=== PATIENT | male | born 1940 | race Caucasian/White ===

== ENCOUNTER 2016-09-26 16:02 | Inpatient (IN) | payer MEDICARE ==
[~2016-09-26] VITALS: Ht 175.3 cm; Wt 85.3 kg
[~2016-09-26 16:02] MED LIST: ASPI-628 PO; CYCL1DRO OP; SIMV20TA4 PO; SOTA80TA PO
[2016-09-26 17:47] VITALS: PULSE 60
[2016-09-26 17:55] VITALS: BP 166/90; PULSE 58; RESP 18; O2SAT 100
--- NOTE | 2016-09-26 18:22 | NUR ---
Transfer from [facility] Pt. arrived to room 2010 PCC from [facility] at ~1745. Pt. arrived on a heparin drip that was started at 1518 at [facility] with a bolus of 5000UNITS heparin at 1515. Heparin drip is currently running at 20mL/hr (11.8UNITS/kg/hr) with a body weight of 84.50kg. Pt. appeared in no apparent distress with no c/o of chest pain or SOB. Family is in the room with Pt. Will continue to monitor.
--- NOTE | 2016-09-26 18:28 | PCM.HPMED ---
Subjective Date of Service Sep 26, 2016 Primary Provider: Admitting Physician: Narendra Lopez MD Primary Care Physician: Sunil Ignacio MD Attending Physician: Narendra Lopez MD Chief Complaint: Left lower extremity DVT History of Present Illness: 76-year-old male with past medical history of CAD status post stent placement 2008, hyperlipidemia, hypertension, paroxysmal A. fib, pacemaker, PE, prostate cancer, DVT with IVC filter in place left lower extremity direct transfer from [facility] scheduled [facility] secondary to extensive left lower extremity DVT which requires ECOS procedure. Patient was seen at [facility] on 09/25/2016 secondary to a near syncopal episode. He received a pacemaker interrogation and adjustment for bradycardia. While he was in the ER yesterday he developed bilateral hip pain though had no acute motor or sensory problems at the time. He was discharged home. He he returned back to [facility] today secondary to weakness and pain specifically low back pain and bilateral hip pain. He states his also had weakness in his lower extremities and pain in his left lower extremity specifically. This pain is increased with any attempt to ambulate or exercise his muscles. 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 He denies any other complaints. In the ED at [facility] patient received: -L-spine x-ray which showed multiple lumbar spine disc degeneration. -Pelvic x-ray showed lower lumbar spine disc degeneration. -Left leg venous Doppler which showed that the deep veins are not normally compressible containing intramural thrombus at the greater saphenous vein, the common femoral vein, profunda femoris vein, superficial femoral vein and popliteal vein. Color and pulse Doppler demonstrated loss of normal phasic intramural venous flow. There is no normal augmentation of response to distal compression maneuver -Chest CT showed small but definite pulmonary embolus in the right lower lobe posterior medially. During ED visit at [facility] patient remained in normal sinus rhythm with normal blood pressures. No hypoxia reported. He did have chronic back pain. Dr. Marissa schaefer has agreed to do [facility] procedure, patient transferred to [facility] via ambulance. Heparin drip per her recall initiated A comprehensive review of systems was conducted with the patient and was negative except that reported in the HPI Allergies Coded Allergies: No Known Allergies (Verified , 02/23/14) Home Medications Per [facility] admission information Aspirin 81 mg by mouth daily Sotalol (Sorine) 80 mg by mouth Sotalol (Betapace AF) 40 mg by mouth a.m. before meals NyQuil Zyquil Restasis Glucosamine Cholecalciferol Levofloxacin Metronidazole Ondansetron PMH CAD stent in 2008 Hypertension Hyperlipidemia Paroxysmal A. fib Pulmonary embolism Prostate cancer IVC filter Surgical History Cardiac stent Prostatectomy Knee surgery Gail filter Cataracts Datanyze in [place] [id number] pacer Family History Noncontributory Social History Occupation: [employer] Hx Alcohol Use: No Hx Substance Use: No Hx Tobacco Use: Yes Living Arrangement: with Family Exam Vital Signs Vital Sign - Last Date Time Temp Pulse Resp B/P Pulse Ox O2 Delivery O2 Flow Rate FiO2 09/26/16 17:55 36.3 58 18 166/90 100 Room Air Exam General: No acute distress, well-developed, well-nourished, appropriately interactive. Sitting up in hospital bed. HEENT: Normocephalic, atraumatic. External ears without defect. Pupils equal, round, and reactive to light and accommodation. Neck: Supple with full range of motion. No jugular venous distension. No bruits. Cardiovascular: Regular rate and rhythm with no murmurs, rubs, or gallops appreciated Pulmonary: Clear to auscultation bilaterally with no crackles, wheezes, or rhonchi. Normal respiratory effort with no use of accessory muscles good air movement Abdomen: Bowel tones present. Soft, nontender, nondistended. Extremities: Bilateral hip tenderness. Left lower extremity medial thigh and popliteal space tender and warm to palpation. Firm vasculature can be appreciated in the area. Skin: Normal temperature, turgor, and texture Neurological: Cranial nerves grossly intact. Psychiatric: Normal mood and affect. Alert and oriented to person, place, and time. Assessment & Plan 76-year-old male with past medical history of CAD status post stent placement 2008, hyperlipidemia, hypertension, paroxysmal A. fib, pacemaker, PE, prostate cancer, DVT with IVC filter in place left lower extremity direct transfer from [facility] scheduled [facility] secondary to extensive left lower extremity DVT which requires ECOS procedure. 1. Left lower extremity DVT. Present on admission. Acute on chronic. Ongoing - Gail filter in place 10 years - Left lower extremity venous Doppler at [facility] confirms - IV heparin per protocol - Cardiology following - ECOS procedure scheduled for the morning - Nothing by mouth after midnight 2. Right lower lobe pulmonary embolus. Acute. Present on admission. Ongoing - CT scan at [facility] confirms - Heparin as above - Oxygenating well on room air - No intervention scheduled at this time - Continue to monitor 3. Paroxysmal A. fib. Chronic. Present on admission. Ongoing - Patient not on home anticoagulation - Telemetry - Continue home sotalol - Continue to monitor 4. Tobacco dependence. Chronic. Present on admission. Ongoing - Offer patient nicotine patch 5. Hypertension. Chronic. Present on admission. Ongoing - Continue home sotalol 6. Hyperlipidemia. Chronic. Present admission. Ongoing - No home med - Lipid panel Patient Status: Patient was admitted under inpatient status with expected length of stay greater than two midnights due to severity of presenting symptoms , risk of adverse event, and complexity of treatment plan. Pain Evaluation: Adequate Pain Control GI Prophylaxis: H2 irma VTE Prophylaxis: Other (on heparin drip) Resuscitation Status: CPR: Attempt Resuscitation Attending Statement The patient was seen and examined together with Dr. Nixon on 09/26/2016 and I agree with the history, exam and plan as outlined in the note above. . copies to: Sunil Ignacio MD, GILES A DO Sep 26, 2016 18:28 Narendra Lopez MD Sep 28, 2016 08:06
[2016-09-26] MEDS ORDERED: Polyethylene Glycol (PEG) 17 Gm Powder PO PRN (18:55)
[2016-09-26] MEDS ORDERED: Alum-Mag Hydrox-Simeth 30 mL Suspension PO PRN (18:55)
[2016-09-26] MEDS ORDERED: Heparin 25K Unit/500mL 0.45 NS 25,000 UNIT in IV Premix 1 EACH IV SCH ×2 (19:25→19:30)
[2016-09-26 19:46] LABS: BASOPHILS % (AUTO) 0.3 % (0-3); EOSINOPHILS % (AUTO) 0.8 % (0-5); MONOCYTES % (AUTO) 11.6 % (4-12); Mean Corpuscular Hemoglobin 28.5 pg (27.0-35.0); Mean Corpuscular Volume 85.5 fL (81-100); Platelet Count 177 bil/L (150-400)
[2016-09-26 20:45] VITALS: BP 119/76; PULSE 66; RESP 19; O2SAT 96
[2016-09-26 20:46] LABS: INR 1.06 ratio
[2016-09-26] MEDS: HYDROcodone-APAP 5-325 mg Tablet PO PRN (20:49)
[2016-09-26 23:06] LABS: APPEARANCE,URINE CLEAR (CLEAR,HAZY); COLOR,URINE YELLOW (YELLOW)
[2016-09-26 23:07] LABS: OCCULT BLOOD,URINE NEGATIVE (NEGATIVE); PH,URINE 5.5 (5.0-8.0); UROBILINOGEN,URINE NORMAL (NORMAL)
[2016-09-26 23:21] VITALS: BP 132/80; PULSE 54; RESP 18; O2SAT 95
[2016-09-27] VITALS (23 sets, daily range): BP systolic 104–149; BP diastolic 59–84; PULSE 50–98; RESP 13–20; O2SAT 93–99
[2016-09-27 01:42] LABS: BASOPHILS % (AUTO) 0.3 % (0-3); MONOCYTES % (AUTO) 13.2 % (4-12); Mean Corpuscular Volume 84.3 fL (81-100); NEUTROPHILS % (AUTO) 52.9 % (40-74); Platelet Count 162 bil/L (150-400)
[2016-09-27 01:58] LABS: INR 1.04 ratio
[2016-09-27 02:06] LABS: Magnesium 2.2 mg/dL (1.6-2.6)
[2016-09-27] MEDS: Heparin 5,000 Unit/mL Inj IVPUSH PRN ×2 (02:33→08:32)
[2016-09-27] MEDS: HYDROcodone-APAP 5-325 mg Tablet PO PRN ×2 (02:51→18:30)
--- NOTE | 2016-09-27 05:23 | NUR ---
HEPARIN GTT / PAIN Heparin gtt infusing @ 14u/kg. Next PTT @ 0730. No s/sx of bleeding. NPO since midnight for procedure in AM. Patient c/o 11/09 hip pain x 2 this shift, prn [place] 1 tab effective. VSS, tele SB/R 50-70's paced.
[2016-09-27] MEDS ORDERED: Heparin 1,000 Units/500 mL NS Premix IV ONE (08:25)
[2016-09-27] MEDS ORDERED: 0.9% Sodium Chloride 3,000 ML ONE (08:25)
[2016-09-27] MEDS ORDERED: Heparin 1,000 Unit/mL 10 mL Inj ONE ×2 (08:25)
--- NOTE | 2016-09-27 09:00 | NUR ---
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 Denies pain. Paced per monitor and storage bin tender. Vital signs stable. Heparin gtt infusing at 16units/kg/hr, no s/s of bleeding. Will continue to monitor.
[2016-09-27] MEDS ORDERED: fentaNYL-PF 50 mCg/mL 2 mL Inj ONE (09:13)
[2016-09-27] MEDS ORDERED: SODIUM CHLORIDE 0.9% IV ONE (10:00)
[2016-09-27] MEDS ORDERED: Glucose 40% Oral Gel 15 Gm Tube PO PRN (10:00)
[2016-09-27] MEDS ORDERED: ALTEPLASE IV ONE (10:00)
--- NOTE | 2016-09-27 10:01 | PCM.PNMED ---
Subjective Date of Service Sep 27, 2016 Subjective Overnight: No bands reported. Nothing by mouth after midnight. Patient had 6 out of 10 hip pain bilaterally even one tab [place] with relief. Vital signs remained stable throughout the night telemetry was sinus bradycardia/sinus paced rhythm 50s to 70s Today: Patient awake and alert lying in hospital bed mentating appropriately. At time of interview patient preparing to leave for ECOS procedure. He still endorses bilateral hip pain though improved from yesterday. And left lower extremity popliteal area pain which increases with palpation and some movement. Denies chest pain, shortness of breath headache visual disturbances nausea vomiting Exam Vital Signs Vital Sign - Last Date Time Temp Pulse Resp B/P Pulse Ox O2 Delivery O2 Flow Rate FiO2 09/27/16 07:59 36.7 57 20 124/79 95 Room Air Intake and Output 09/26/16 09/26/16 09/27/16 Cumulative From/Thru 15:00 23:00 07:00 09/26/16 17:54 - 09/27/16 05:39 Intake Total 1167 ml 1167 ml Output Total 600 ml 600 ml Balance 567 ml 567 ml Intake Oral 922 ml 922 ml IV Total 245 ml 245 ml Output Urine Total 600 ml 600 ml Exam General: No acute distress, well-developed, well-nourished, appropriately interactive. Laying in hospital bed HEENT: Normocephalic, atraumatic. External ears without defect. Pupils equal, round, and reactive to light and accommodation. Neck: Supple with full range of motion. No jugular venous distension. No bruits. Cardiovascular: Regular rate and rhythm with no murmurs, rubs, or gallops appreciated Pulmonary: Clear to auscultation bilaterally with no crackles, wheezes, or rhonchi. Normal respiratory effort with no use of accessory muscles good air movement Abdomen: Bowel tones present. Soft, nontender, nondistended. Extremities: Bilateral hip tenderness. Left lower extremity medial thigh and popliteal space tender and warm to palpation. Firm vasculature can be appreciated in the area unchanged from yesterday. Skin: Normal temperature, turgor, and texture Neurological: Cranial nerves grossly intact. Psychiatric: Normal mood and affect. Alert and oriented to person, place, and time. IVs and Medications Medications Reviewed: Medications were reviewed in detail Lab and Diagnostics Result Diagram: 09/27/16 0125 09/27/16 0125 Assessment & Plan 76-year-old male with past medical history of CAD status post stent placement 2009, hyperlipidemia, hypertension, paroxysmal A. fib, pacemaker, PE, prostate cancer, DVT with IVC filter in place left lower extremity direct transfer from [facility] secondary to extensive left lower extremity DVT which requires ECOS procedure. Hospital day 2 1. Left lower extremity DVT. Present on admission. Acute on chronic. Ongoing - Chamisal filter in place 10 years - Left lower extremity venous Doppler at [facility] confirms - IV heparin per protocol - DC'd prior to ECOS procedure today - Cardiology following - ECOS procedure today - We will upgrade to CCU status after procedure for 24 monitoring 2. Right lower lobe pulmonary embolus. Acute. Present on admission. Ongoing - CT scan at [place] confirms - Heparin as above - Oxygenating well on room air - No intervention scheduled at this time - Continue to monitor 3. Paroxysmal A. fib. Chronic. Present on admission. Ongoing - Patient not on home anticoagulation - Telemetry - Continue home sotalol - Continue to monitor 4. Tobacco dependence. Chronic. Present on admission. Ongoing - Offer patient nicotine patch 5. Hypertension. Chronic. Present on admission. Ongoing - Continue home sotalol 6. Hyperlipidemia. Chronic. Present admission. Ongoing - No home med - Lipid panel shows LDL 124 total cholesterol 207 - Consider addition of home statin, will discuss with patient 7. Hyperglycemia - A1c 6.4 - low-dose correctional scale. Patient Status: Patient was admitted under inpatient status with expected length of stay greater than two midnights due to severity of presenting symptoms , risk of adverse event, and complexity of treatment plan. Pain Evaluation: Adequate Pain Control GI Prophylaxis: H2 irma VTE Prophylaxis: Other Resuscitation Status: CPR: Attempt Resuscitation Attending Statement The patient was seen and examined together with Dr. Nixon on 09/27/2016 and I agree with the history, exam and plan as outlined in the note above. . ILSA NIXON DO Sep 27, 2016 10:01 Narendra Lopez MD Sep 28, 2016 08:07
[2016-09-27] MEDS: Ondansetron 2 mg/mL 2 mL Inj IVPUSH PRN ×3 (10:03→16:50)
--- NOTE | 2016-09-27 10:21 | NUR ---
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 Catheter to left popliteal, secure and intact. No sign of active bleeding or hematoma at site. Neurovascular assessment within normal limits. +2 pedal pulses. Nausea and dizziness reported at time of arrival. Denies pain. A-paced with PVCs per playground monitor. Pressure stable. Desaturated down to 88-89% while on room air, 3L 02 placed and saturation returned to mid 90s. Awaiting TPA to initiated EKOS treatment. at bedside. Plan of care and activity restrictions reviewed. Will continue to monitor.
[2016-09-27] MEDS ORDERED: Alteplase (Cathflo) Inj 12 MG in 0.9% Sodium Chloride 250 ML IV ONE (10:25)
--- NOTE | 2016-09-27 10:27 | DI96 ---
[address] [address] PERIPHERAL CATHETERIZATION/INTERVENTION REPORT PATIENT: JANKI NORTON : 1940 MR#: [id number] ADMIT: 09/26/2016 JOB ID: [id number] DATE OF PROCEDURE: 09/27/2016 PATIENT PROFILE: The patient is a 76-year-old male who presented with occlusive deep venous thrombosis of the left lower extremity. PROCEDURE: 1. Conscious sedation for 25 minutes. 2. Venous access from the left popliteal vein under ultrasound guidance. 3. Left popliteal venogram. 4. Left common femoral venogram. 5. Catheter-directed thrombolysis. VASCULAR CLOSURE DEVICE: None. COMPLICATIONS: None. METHOD: Conscious sedation was achieved with IV Versed and IV fentanyl. Venous access was obtained from the left popliteal fossa under ultrasound guidance by using a micropuncture needle and placing a 6-Danish sheath. Left popliteal venogram was performed in the AP view by manual injection. The Glidewire was then used to direct a 4-Danish slip catheter into the left common femoral vein. Left common femoral venogram was performed in the AP view with manual injection. This catheter was then exchanged over a J wire into a EKOS catheter with the treatment length of 50 cm. The EKOS catheter was then secured in situ. Catheter-directed thrombolysis will be initiated at 1 mg/hour for 12 hours. The patient was transferred to intensive care unit in stable condition. TOTAL CONTRAST USED: 10 cc. FLUOROSCOPY TIME: 1.5 minutes. RESULTS: 1. Occlusive deep venous thrombosis identified in the left external iliac vein, left common femoral vein and left femoral vein. 2. Catheter-directed thrombolysis initiated at 1 mg/hour for 12 hours. MTDD
[2016-09-27] MEDS ORDERED: MetoCLOpramide 5 mg/mL 2 mL Inj IVPUSH ONE (11:15)
[2016-09-27] MEDS ORDERED: Heparin 25K Unit/500mL 0.45 NS 25,000 UNIT in IV Premix 1 EACH IV SCH (11:35)
[2016-09-27] MEDS ORDERED: LORazepam 0.5 mg Tablet PO PRN (11:35)
[2016-09-27] MEDS: Insulin LISPRO 300 Unit/3 mL Inj SUBQ SCH ×3 (12:00→21:34)
--- NOTE | 2016-09-27 12:14 | DRSVH ---
PROCEDURE: US GUIDE FOR VASCULAR ACCESS INDICATIONS: ECOS VASC ACCESS OF POPLITEAL VEIN COMPARISON: None. FINDINGS: Sonography was utilized to access the left popliteal vein for surgical planning. IMPRESSION: Sonography utilized to access the left popliteal vein by Dr. Ann. Dictated by: Jarrod WILLS Interpreted: Mary Truong MD on 09/27/2016 at 12:13 Transcribed by: BENITA on 09/27/2016 at 12:14 Approved by: Mary Truong MD, PhD on 09/27/2016 at 12:22
[2016-09-27] MEDS ORDERED: 0.9% Sodium Chloride 1,000 ML IV SCH (12:50)
--- NOTE | 2016-09-27 15:08 | NUR ---
status Patient resting quietly without complaints. Sheath to left popliteal secure and intact, dressing c/d/i. EKOS treatment in process. No evidence of bleeding. Neurovascular assessments remain within normal limits. Vital signs stable. A-paved per workforce development program director. remains at bedside. Will continue to monitor.
[2016-09-28] VITALS (20 sets, daily range): BP systolic 104–147; BP diastolic 60–84; PULSE 54–95; RESP 12–24; O2SAT 92–97
[2016-09-28] MEDS ORDERED: Heparin 5,000 Unit/mL Inj ONE (00:34)
[2016-09-28] MEDS ORDERED: Heparin 25K Unit/500mL 0.45 NS 25,000 UNIT in IV Premix 1 EACH IV SCH ×2 (00:50→18:55)
[2016-09-28] MEDS ORDERED: Heparin Protocol Boluses IVPUSH PRN (00:50)
[2016-09-28 03:05] LABS: BASOPHILS % (AUTO) 0.1 % (0-3); EOSINOPHILS % (AUTO) 1.1 % (0-5); MONOCYTES % (AUTO) 10.5 % (4-12); Mean Corpuscular Volume 86.1 fL (81-100); NEUTROPHILS % (AUTO) 62.8 % (40-74); Platelet Count 142 bil/L (150-400)
[2016-09-28] MEDS: Heparin 1,000 Units/500 mL NS 1,000 UNIT in IV Premix 1 EACH IV SCH ×2 (04:37→11:30)
--- NOTE | 2016-09-28 04:56 | NUR ---
EKOS MACHINE, HEPARIN GTT ekos machine to left popliteal sheath site til 2230, floating labor gang supervisor RN in to discontinue eko catheter and shealth left in place, heparin gtt 2u/ml concentration infusing at 25ml/hr per cath rn and Dr. Hebert, lle warm, strong pedal pulses present, h/h stable, no active bleeding noted right PT pulse weak to palpation heparin gtt per pe/dvt protocol infusing per piv, ns at 60ml/hr for 10hrrs per orders, now at tko, pt a/o times three, coop with bedrest activity level, tilted side to side to help relieve chronic hip pain along with prn iv morphine ivp, morphine effective, pt had received vicodin prior to design director --no effective for pain control, good uop per f/c, bt present, abd soft/nt, no bm, npo after mn, tele- sb,a/v paced, hr 50's-90's, bp stable, afebrile, plan: see ccu flow sheet, npo after mn per md order, anticipate return to floating labor gang supervisor in am to re-evaluate lle dvt per floating labor gang supervisor rn, Addendum: 09/28/16 at 0644 by SANTY MCCORMICK RN am ptt still pending, will pass on to day shift rn,
[2016-09-28] MEDS: Insulin LISPRO 300 Unit/3 mL Inj SUBQ SCH ×4 (08:00→21:13)
--- NOTE | 2016-09-28 09:05 | NUR ---
SHIELA signed LASHON [place]
--- NOTE | 2016-09-28 09:50 | NUR ---
Transfer to cath lab technologist for scheduled procedure.
[2016-09-28] MEDS ORDERED: Heparin 1,000 Unit/mL 10 mL Inj ONE (10:28)
[2016-09-28] MEDS ORDERED: Heparin 1,000 Units/500 mL NS Premix IV ONE (10:29)
[2016-09-28] MEDS ORDERED: 0.9% Sodium Chloride 1,000 ML ONE (10:38)
[2016-09-28] MEDS ORDERED: Alteplase (Cathflo) Inj 12 MG in 0.9% Sodium Chloride 250 ML IV ONE (10:40)
--- NOTE | 2016-09-28 11:10 | NUR ---
Returned from oil field laborer Pt arrived to room 2010. Alert and oriented. Denies pain. Left popliteal catheter secure and intact. No evidence of bleeding. +2 pedal pulses. Neurovascular assessment normal. SB/a-paced per pvc monitor. Normotensive. Awaiting TPA to initiate EKOS therapy.
--- NOTE | 2016-09-28 11:27 | DI96 ---
[address] [address] PERIPHERAL CATHETERIZATION/INTERVENTION REPORT PATIENT: JANKI NORTON : 1940 MR#: [id number] ADMIT: 09/26/2016 JOB ID: [id number] DATE OF PROCEDURE: 09/28/2016 PATIENT PROFILE: The patient is a 76-year-old male who presented with occlusive deep venous thrombosis of the left lower extremity. He underwent catheter-directed thrombolysis to the left femoral vein, left common femoral vein and left external iliac vein yesterday with an EKOS catheter with a treatment length of 50 cm. PROCEDURE: 1. Left popliteal and femoral venogram. 2. Left common iliac venogram. 3. Catheter-directed thrombolysis to the inferior vena cava and left common iliac vein. VASCULAR CLOSURE DEVICE: None. COMPLICATIONS: None. METHOD: The patient was brought to the catheterization laboratory table. Left popliteal and femoral venogram was performed in the AP position by injecting contrast via the existing venous sheath. It demonstrated the previous deep venous thrombosis in the left femoral vein, common femoral vein and external iliac vein had disappeared. However, the flow was still slow. The patient was then put in the prone position. The left popliteal fossa was then prepped and draped under standard sterile technique. The venous sheath was then exchanged to a new 6-Martiniquais sheath. A 4-Martiniquais pigtail catheter was then advanced into the left common iliac vein. A left common iliac venogram was performed in the AP view. It demonstrated occlusive large thrombus burden in the left common iliac vein. The pigtail catheter was then exchanged to an EKOS catheter with a treatment length of 18 cm. It was placed in the inferior vena cava below the IVC filter, left common iliac vein and proximal portion of the left external iliac vein. The thrombolysis will be infused with tPA at 1 mg/h for 12 hours. The patient was transferred to intensive care unit in stable condition. TOTAL CONTRAST USED: 50 cc. FLUOROSCOPY TIME: 1.1 minutes. RESULTS: 1. The left femoral vein, left common femoral vein and left external iliac vein are free of thrombus. 2. The left common iliac vein and inferior vena cava up to the IVC filter still have a large thrombus burden. 3. Catheter-directed thrombolysis was then initiated at 1 mg/h. It will be infused for 12 hours to treat the inferior vena cava and left common iliac vein thrombus. MTDD
[2016-09-28] MEDS: Ondansetron 2 mg/mL 2 mL Inj IVPUSH PRN ×2 (13:25→18:47)
--- NOTE | 2016-09-28 13:42 | PCM.PNMED ---
Subjective Date of Service Sep 28, 2016 Subjective Overnight: Patient required pain medicine post ECOS procedure. Rested well throughout the night. No specific complaints or events reported. Today: Patient awake and alert resting in bed in no apparent distress present at bedside. States his back hurts from laying in bed too much though has no other specific complaints. Is in good spirits overall. Exam Vital Signs Vital Sign - Last Date Time Temp Pulse Resp B/P Pulse Ox O2 Delivery O2 Flow Rate FiO2 09/28/16 13:00 95 24 108/69 92 Room Air 09/28/16 12:30 36.8 09/28/16 04:00 2.00 Intake and Output 09/27/16 09/27/16 09/28/16 Cumulative From/Thru 15:00 23:00 07:00 09/26/16 17:54 - 09/28/16 06:23 Intake Total 1268 ml 1688 ml 4123 ml Output Total 1100 ml 750 ml 2450 ml Balance 168 ml 938 ml 1673 ml Intake Oral 125 ml 500 ml 1547 ml IV Total 1143 ml 1188 ml 2576 ml Output Urine Total 1100 ml 750 ml 2450 ml # Bowel Movements 0 0 Exam General: No acute distress, well-developed, well-nourished, appropriately interactive. Laying in hospital bed. at bedside HEENT: Normocephalic, atraumatic. External ears without defect. Pupils equal, round, and reactive to light and accommodation. Neck: Supple with full range of motion. Cardiovascular: Regular rate and rhythm with no murmurs, rubs, or gallops appreciated Pulmonary: Clear to auscultation bilaterally with no crackles, wheezes, or rhonchi. Normal respiratory effort with no use of accessory muscles good air movement Abdomen: Bowel tones present. Soft, nontender, nondistended. Extremities: Bilateral hip tenderness. Left leg with bandage in place in the popliteal space. Intact no erythema and mild tenderness to palpation. Skin: Normal temperature, turgor, and texture Neurological: Cranial nerves grossly intact. Psychiatric: Normal mood and affect. Alert and oriented to person, place, and time. IVs and Medications Medications Reviewed: Medications were reviewed in detail Lab and Diagnostics Result Diagram: 09/28/16 0255 09/28/16 0255 X-Rays, CTs and MRIs . US GUIDE FOR VASCULAR ACCESS IMPRESSION: Sonography utilized to access the left popliteal vein by Dr. Ann. Dictated by: Jarrod Manning [facility] Interpreted: Mary Truong MD on 09/27/2016 at 12:13 Additional Diagnostics . PERIPHERAL CATHETERIZATION/INTERVENTION REPORT RESULTS: 1. Occlusive deep venous thrombosis identified in the left external iliac vein, left common femoral vein and left femoral vein. 2. Catheter-directed thrombolysis initiated at 1 mg/hour for 12 hours. Devika Potter MD 09/27/16 0954 PERIPHERAL CATHETERIZATION/INTERVENTION REPORT RESULTS: 1. The left femoral vein, left common femoral vein and left external iliac vein are free of thrombus. 2. The left common iliac vein and inferior vena cava up to the IVC filter still have a large thrombus burden. 3. Catheter-directed thrombolysis was then initiated at 1 mg/h. He will be infused for 12 hours to treat the inferior vena cava and left common iliac vein. Devika Potter MD 09/28/16 1046 Assessment & Plan 76-year-old male with past medical history of CAD status post stent placement 2008, hyperlipidemia, hypertension, paroxysmal A. fib, pacemaker, PE, prostate cancer, DVT with IVC filter in place left lower extremity direct transfer from [facility] scheduled [facility] secondary to extensive left lower extremity DVT which requires ECOS procedure. Hospital day 3 1. Left lower extremity DVT. Present on admission. Acute on chronic. Ongoing - Gail filter in place 10 years - Left lower extremity venous Doppler at [facility] confirms - Cardiology following - ECOS yesterday with an additional procedure completed today - Alteplase - We will transition to Lovenox 90 mg twice a day after completion of alteplase infusion today, followed by Lovenox twice a day 2. Right lower lobe pulmonary embolus. Acute. Present on admission. Ongoing - CT scan at [place] confirms - Anticoagulation as above - Oxygenating well on room air - No intervention scheduled at this time - Continue to monitor 3. Paroxysmal A. fib. Chronic. Present on admission. Ongoing - Patient not on home anticoagulation - Telemetry - Continue home sotalol - Continue to monitor 4. Tobacco dependence. Chronic. Present on admission. Ongoing - Offer patient nicotine patch 5. Hypertension. Chronic. Present on admission. Ongoing - Continue home sotalol 6. Hyperlipidemia. Chronic. Present admission. Ongoing - No home med - Lipid panel shows LDL 124 total cholesterol 207 - Consider addition of home statin, will discuss with patient 7. Hyperglycemia - A1c 6.4 - low-dose correctional scale. Disposition: Patient remained inpatient one more night with transition from alteplase to Lovenox, anticipate discharge tomorrow. Pain Evaluation: Adequate Pain Control GI Prophylaxis: H2 irma VTE Prophylaxis: Other Resuscitation Status: CPR: Attempt Resuscitation Attending Statement The patient was seen and examined together with Dr. Nixon on 09/28/2016 and I agree with the history, exam and plan as outlined in the note above. . ILSA NIXON DO Sep 28, 2016 13:42 Narendra Lopez MD Sep 29, 2016 08:10
--- NOTE | 2016-09-28 15:22 | NUR ---
Social Work: Initial Assessment Data: Pt is a 76 y/o male admitted for ischemic left lower extremity. Pt's PCP is Dr Ignacio. Pt's insurance is Medicare with [employer]. EMR reviewed. Readmit score is 1. SALON ASSISTANT met with pt, role explained. Pt states he lives in a two story home with his where he uses no DME. Pt drives, has no hx of HH or SNF, no LTC or VA benefits, not a caregiver. Pt reports he has not been out of bed since start of hospitalization, SALON ASSISTANT will continue to follow for possible d/c needs. Assessment: Pt who is independent at baseline. Plan: SALON ASSISTANT will continue to follow for d/c planning needs. LASHON Toledo Addendum: 09/28/16 at 1526 by SHAWNA RUTLEDGE Amended: Links added.
--- NOTE | 2016-09-28 17:23 | NUR ---
Chest pressure Pt c/o dull right sided chest pressure, rating pain 3/10. Pt believes pain to be r/t gas. Maalox given without relief. Morphine refused when offered. Denies SOA. No reported nausea. Continues in SB with paced beats per salesperson women's dresses. Pressure stable. Heparin gtt infusing at 800 units/hr. Left popliteal assess site secure and intact. No evidence of bleeding. +2 pedal pulses. EKOS treatment continued. Dr Nixon notified of change in patient status, EKG ordered. Will continue to monitor.
[2016-09-29 00:01] VITALS: BP 140/77; PULSE 56; PULSE 60; RESP 19; O2SAT 93
--- NOTE | 2016-09-29 01:28 | NUR ---
EKOS/Heparin/Disposition EKOS removed per brine room laborerlaborer golf course at 2330. Left popliteal dressing clean, dry and intact. Leg warm and strong palpable pulses. Lovenox injection given at 2000 and Heparin drip discontinued per orders at 2200. Patient agitated and impatient. Patient removed BP cuff around 0115. Patient alert and oriented to self, place and time. Patient denies pain and refused sleep aid.
[2016-09-29 03:00] LABS: BASOPHILS % (AUTO) 0.3 % (0-3); EOSINOPHILS % (AUTO) 1.2 % (0-5); MONOCYTES % (AUTO) 11.2 % (4-12); Mean Corpuscular Hemoglobin 28.4 pg (27.0-35.0); Mean Corpuscular Volume 83.6 fL (81-100); NEUTROPHILS % (AUTO) 61.5 % (40-74); Platelet Count 147 bil/L (150-400)
[2016-09-29 04:04] VITALS: BP 144/73; PULSE 55; PULSE 56; RESP 16; O2SAT 95
[2016-09-29] MEDS ORDERED: Heparin 1,000 Units/500 mL NS 1,000 UNIT in IV Premix 1 EACH IV SCH (04:10)
[2016-09-29] MEDS: Insulin LISPRO 300 Unit/3 mL Inj SUBQ SCH (08:00)
[2016-09-29 08:13] VITALS: BP 133/73; PULSE 55; RESP 17; O2SAT 95
[2016-09-29] MEDS ORDERED: LOV100 SUBQ ×2 (11:24→12:36)
[2016-09-29] MEDS ORDERED: WARF5TAB7 PO (11:28)
--- NOTE | 2016-09-29 11:32 | PCM.DIMED ---
Garcia Salazar DO 09/29/16 1131: Discharge Instructions Date of Service Sep 29, 2016 Dates of Hospitalization Sep 26, 2016 at 17:43 Discharge Diagnosis Discharge Diagnosis Left lower extremity DVT. Present on admission. Acute on chronic. Ongoing Right lower lobe pulmonary embolus. Acute. Present on admission. Ongoing Paroxysmal A. fib. Chronic. Present on admission. Ongoing Hypertension. Chronic. Present on admission. Ongoing Hyperlipidemia. Chronic. Present admission. Ongoing Hyperglycemia, chronic. Present on admission. Ongoing Medication Instructions During this hospitalization you were started on a new medication. Unless otherwise directed by a physician please follow these instructions. Note that your medication regimen may continued to be changed by your physician. -Lovenox 90mg. Inject 90mg subcutaneously every 12 hours. Continue until INR is between 2 and 3. This will be checked at the [facility]. -Warfarin 5mg. Take one tablet by mouth daily. -Continue your other home medications. Take them as directed. Diet Heart Healthy, Diabetic Activity Limited until seen by PCP Call your provider Bleeding, Chest pain Patient Instructions You will need to follow up with the [facility]mad[facility] Clinic by 10/01/2016. Follow up with your primary care physician in about one week to discuss this hospitalization. Follow-up Provider: Sunil Ignacio MD Follow-up with PCP in: 1 week Narendra Lopez MD 09/29/16 1439: Discharge Instructions Attending's Statement The patient was seen and examined together with Dr. Salazar on 09/29/2016 and I agree with the history, exam and plan as outlined in the note above. . Garcia Salazar DO Sep 29, 2016 11:31 Narendra Lopez MD Sep 29, 2016 14:39
--- NOTE | 2016-09-29 11:43 | NUR ---
Social Work: Readiness for d/c Data: Pt is on day 3 of hospitalization. EMR reviewed, pt discussed in rounds. MD states pt ready for d/c today. requested ARMORED CAR DRIVER run cost of Lovenox for pt. Pt states preferred pharmacy [facility]. ARMORED CAR DRIVER spoke with Seema, faxed over prescription to [phone]. ARMORED CAR DRIVER awaiting phone call with cost for pt. Assessment: Pt who is independent at baseline. Plan: Pt will d/c home via POV when medically stable, likely today. ARMORED CAR DRIVER awaiting phone call with cost for pt for Lovenox. ARMORED CAR DRIVER will continue to follow. LASHON Toledo Addendum: 09/29/16 at 1231 by SHAWNA RUTLEDGE Violet called ARMORED CAR DRIVER back. Pt's insurance will not cover a 5 day supply, but will cover an 8 day supply for a copay of $225.70 for pt. ARMORED CAR DRIVER notified . states 8 day supply is fine. Pt will go to get INR checked at coumadin clinic and they will notify pt if he should continue taking the medication or not. ARMORED CAR DRIVER notified pt and spouse, they can afford medication. LASHON Toledo
--- NOTE | 2016-09-29 12:36 | NUR ---
Social Work: Discharge Data: Pt is on day 3 of hospitalization. EMR reviewed. states pt will d/c today. Lovenox prescription run and pt can afford it, agreeable. No further d/c planning needs at this time. SUPERVISOR TUMBLERS will continue to follow if needs arise. Assessment: Pt who is independent at baseline. Plan: Pt will d/c home via POV today. Lovenox prescription run and pt can afford it, agreeable. No further d/c planning needs at this time. SUPERVISOR TUMBLERS will continue to follow if needs arise. LASHON Toledo
[2016-09-29 13:04] VITALS: BP 118/67; PULSE 58; RESP 16; O2SAT 92
--- NOTE | 2016-09-29 13:28 | NUR ---
Discharge Patient without complaints. Denies pain. Ambulating halls without difficulty. Voiding per bathroom. Vital signs stable. Left popliteal assess site, c/d/i. No evidence of bleeding. Discharge instructions reviewed at bedside. Lovenox education provided. Pt escorted to private vehicle via wheelchair.
--- NOTE | 2016-09-30 16:55 | PCM.DC.MED ---
Discharge Summary Date of Service September 30, 2016 Dates of Hospitalization Date of Hospital Admission Sep 26, 2016 at 17:43 Date of Discharge: Sep 29, 2016 Providers: Admitting Physician: Narendra Lopez MD Primary Care Physician: Sunil Ignacio MD Attending Physician: Narendra Lopez MD Diagnosis at Time of Discharge Diagnosis at Time of Discharge Left lower extremity DVT. Present on admission. Acute on chronic. Ongoing Right lower lobe pulmonary embolus. Acute. Present on admission. Ongoing Paroxysmal A. fib. Chronic. Present on admission. Ongoing Hypertension. Chronic. Present on admission. Ongoing Hyperlipidemia. Chronic. Present admission. Ongoing Hyperglycemia, chronic. Present on admission. Ongoing Consultations Dr.Kamol Potter of Interventional Cardiology Procedures XRay, CTs & MRIs . US GUIDE FOR VASCULAR ACCESS IMPRESSION: Sonography utilized to access the left popliteal vein by Dr. Ann. Dictated by: Jarrod WILLS Interpreted: Mary Truong MD on 09/27/2016 at 12:13 Other Diagnostics . PERIPHERAL CATHETERIZATION/INTERVENTION REPORT RESULTS: 1. Occlusive deep venous thrombosis identified in the left external iliac vein, left common femoral vein and left femoral vein. 2. Catheter-directed thrombolysis initiated at 1 mg/hour for 12 hours. Devika Potter MD 09/27/16 0954 PERIPHERAL CATHETERIZATION/INTERVENTION REPORT RESULTS: 1. The left femoral vein, left common femoral vein and left external iliac vein are free of thrombus. 2. The left common iliac vein and inferior vena cava up to the IVC filter still have a large thrombus burden. 3. Catheter-directed thrombolysis was then initiated at 1 mg/h. He will be infused for 12 hours to treat the inferior vena cava and left common iliac vein. Devika Potter MD 09/28/16 1046 Brief History Per admit note by Dr. Saeid Nixon dated 09/26/2016: 76-year-old male with past medical history of CAD status post stent placement 2008, hyperlipidemia, hypertension, paroxysmal A. fib, pacemaker, PE, prostate cancer, DVT with IVC filter in place left lower extremity direct transfer from [facility] scheduled [facility] secondary to extensive left lower extremity DVT which requires ECOS procedure. Patient was seen at [facility] on 09/25/2016 secondary to a near syncopal episode. He received a pacemaker interrogation and adjustment for bradycardia. While he was in the ER yesterday he developed bilateral hip pain though had no acute motor or sensory problems at the time. He was discharged home. He he returned back to [facility] today secondary to weakness and pain specifically low back pain and bilateral hip pain. He states his also had weakness in his lower extremities and pain in his left lower extremity specifically. This pain is increased with any attempt to ambulate or exercise his muscles. 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 He denies any other complaints. In the ED at [facility] patient received: -L-spine x-ray which showed multiple lumbar spine disc degeneration. -Pelvic x-ray showed lower lumbar spine disc degeneration. -Left leg venous Doppler which showed that the deep veins are not normally compressible containing intramural thrombus at the greater saphenous vein, the common femoral vein, profunda femoris vein, superficial femoral vein and popliteal vein. Color and pulse Doppler demonstrated loss of normal phasic intramural venous flow. There is no normal augmentation of response to distal compression maneuver -Chest CT showed small but definite pulmonary embolus in the right lower lobe posterior medially. During ED visit at [facility] patient remained in normal sinus rhythm with normal blood pressures. No hypoxia reported. He did have chronic back pain. Dr. Marissa schaefer has agreed to do [place] procedure, patient transferred to [facility] via ambulance. Heparin drip per her recall initiated A comprehensive review of systems was conducted with the patient and was negative except that reported in the HPI Hospital Course [id number] male with past medical history of CAD status post stent placement in 2008, hyperlipidemia, hypertension, paroxysmal A. fib, pacemaker, history of PE, prostate cancer, DVT with IVC filter in left lower extremity presenting as a direct transfer from [facility] secondary to extensive left lower extremity DVT. The patient underwent EKOS and tolerated the procedure without complications. 1. Left lower extremity DVT. Present on admission. Acute on chronic - Gail filter in place 10 years - Left lower extremity venous Doppler at [facility] confirmed the DVT. - Patient underwent EKOS with subsequent alteplase infusion. - After the alteplase infusion the patient was started on Lovenox 90mg twice daily to bridge until warfarin is therapeutic. - The patient was provided information to follow up with [facility] to check his INR. 2. Right lower lobe pulmonary embolus. Acute. Present on admission. Under treatment - Confirmed on CT scan at [facility] - The patient was saturating well on room air during hospitalization - Anticoagulation as above 3. Paroxysmal A. fib. Chronic. Present on admission. - Patient was not previously on anticoagulation - Patient instructed to restart his home dose sotalol on discharge - Anticoagulation as above 4. Hypertension, chronic. Present on admission. - Patient was normotensive for majority of hospitalization 6. Hyperlipidemia, chronic. Present admission. - Patient not on statin - Lipid panel shows LDL 124 total cholesterol 207 - Consider starting a statin 7. Hyperglycemia, uncertain acuity. Present on admission - HbA1c 6.4% which is considered pre-diabetic - Patient was placed on a low-dose correctional insulin Lispro during hospitalization Exam Vital Signs (Last) Date Time Temp Pulse Resp B/P Pulse Ox O2 Delivery O2 Flow Rate FiO2 09/29/16 13:04 36.5 58 16 118/67 92 Room Air 09/29/16 08:13 2.00 Exam General: Patient sitting on edge of bed. No acute distress, well-developed, well -nourished, appropriately interactive. HEENT: Normocephalic, atraumatic. External ears without defect. Cardiovascular: Regular rate and rhythm with no murmurs, rubs, or gallops appreciated Pulmonary: Clear to auscultation bilaterally with no crackles, wheezes, or rhonchi. Normal respiratory effort with no use of accessory muscles good air movement Abdomen: Bowel tones present. Soft, nontender, nondistended. Extremities: Left popliteal fossa with clean, dry dressing. No erythema, bleeding or drainage from site. Skin: Normal temperature, turgor, and texture Neurological: Cranial nerves grossly intact. Psychiatric: Normal mood and affect. Alert and oriented to person, place, and time. Test 09/26/16 19:12 09/26/16 19:56 09/27/16 01:25 09/28/16 02:55 Hemoglobin A1c 6.4% (4.8-5.6) Triglycerides Level 132mg/dL (0-149) Cholesterol Level 207mg/dL (100-199) LDL Cholesterol, Calculated 124.600mg/dL (0-99) VLDL Cholesterol 26.400mg/dL HDL Cholesterol 56mg/dL (>39) Cholesterol/HDL Ratio 3.70 (0.0-4.4) Urine Color Yellow (YELLOW) Urine Appearance Clear (CLEAR,HAZY) Urine pH 5.5 (5.0-8.0) Urine Specific [place] 1.010 (1.003-1.035) Urine Protein Negativemg/dL (NEG,TRACE) Urine Glucose (UA) Negativemg/dL (NEGATIVE) Urine Ketones Negativemg/dL (NEGATIVE) Urine Occult Blood Negative (NEGATIVE) Urine Nitrite Negative (NEGATIVE) Urine Bilirubin Negative (NEGATIVE) Urine Urobilinogen Normalmg/dL (NORMAL) Urine Leukocyte Esterase Negative (NEGATIVE) Urine RBC 0-2/hpf (0-2) Urine WBC 0-5/hpf (0-5) Urine Epithelial Cells Occasional/hpf (NONE-MOD) Urine Crystals None seen (NONE SEEN) Urine Bacteria None/hpf (NONE-FEW) Urine Hyaline Casts None/lpf (NONE) Urine Granular Casts None seen (NONE SEEN) Urine Waxy Casts None seen (NONE SEEN) Urine Red Blood Cell Casts None seen (NONE SEEN) Urine White Blood Cell Casts None seen (NONE SEEN) Urine Mucus None seen (None Seen) Urine Trichomonas None seen (NONE SEEN) Urine Yeast None (NONE SEEN) Urinalysis Comment None Urine Culture Reflexed Not indicated Hold Urine Received (Received) Prothrombin Time 11.1sec (8.1-12.5) Prothromb Time International Ratio 1.04ratio Magnesium Level 2.2mg/dL (1.6-2.6) Total Bilirubin 2.2mg/dL (0.0-1.2) Aspartate Amino Transf (AST/SGOT) 14U/L (0-50) Alanine Aminotransferase (ALT/SGPT) 10U/L (0-44) Alkaline Phosphatase 55U/L (25-160) Total Protein 5.6g/dL (6.4-8.4) Albumin 3.3g/dL (3.4-5.0) Test 09/28/16 06:00 09/28/16 12:30 09/29/16 02:50 Fibrinogen 188mg/dL (157-380) Activated Partial Thromboplast Time 34.2sec (22.8-33.0) White Blood Count 6.0th/mm3 (3.8-10.1) Red Blood Count 4.57mil/mm3 (4.40-5.80) Hemoglobin 13.0g/dL (13.8-17.2) Hematocrit 38.2% (41.0-50.0) Mean Corpuscular Volume 83.6fL (81-100) Mean Corpuscular Hemoglobin 28.4pg (27.0-35.0) Mean Corpuscular Hemoglobin Concent 34.0% (32.0-37.0) Red Cell Distribution Width 14.5% (12.3-15.4) Platelet Count 147bil/L (150-400) Neutrophils (%) (Auto) 61.5% (40-74) Lymphocytes (%) (Auto) 25.5% (14-46) Monocytes (%) (Auto) 11.2% (4-12) Eosinophils (%) (Auto) 1.2% (0-5) Basophils (%) (Auto) 0.3% (0-3) Sodium Level 139mEq/L (134-144) Potassium Level 4.4mEq/L (3.5-5.2) Chloride Level 102mEq/L (97-108) Carbon Dioxide Level 24mmol/L (18-29) Blood Urea Nitrogen 13mg/dL (8-27) Creatinine 0.73mg/dL (0.76-1.27) Estimat Glomerular Filtration Rate 111mL/min (>59) Glucose Level 109mg/dL (60-99) Calcium Level 8.4mg/dL (8.5-10.1) Discharge Medications Discharge Medications Aspirin (Aspir 81) 81 Mg Tablet.dr 81 MG PO DAILY (Reported) Enoxaparin (Lovenox) 100 Mg/Ml Syringe 90 MG SUBQ Q12 Prescribed by: ANGEL CAMERON DO Sotalol HCl (Sotalol) 80 Mg Tablet 80 MG PO HS (Reported) Sotalol HCl (Sotalol) 80 Mg Tablet 40 MG PO AM (Reported) Warfarin Sodium (Warfarin Sodium) 5 Mg Tablet 5 MG PO DAILY Prescribed by: ANGEL CAMERON, DO Additional med instructions During this hospitalization you were started on a new medication. Unless otherwise directed by a physician please follow these instructions. Note that your medication regimen may continued to be changed by your physician. -Lovenox 90mg. Inject 90mg subcutaneously every 12 hours. Continue until INR is between 2 and 3. This will be checked at the [facility]. -Warfarin 5mg. Take one tablet by mouth daily. -Continue your other home medications. Take them as directed. Followup Plan Discharge Diet: Heart Healthy, Diabetic Discharge Activity: Limited until seen by PCP Patient Instructions You will need to follow up with the Coumadin Clinic by 10/01/2016. Follow up with your primary care physician in about one week to discuss this hospitalization. Follow-up Provider: Sunil Ignacio MD Follow-up with PCP in: 1 week Time spent Greater than 30 minutes was spent in preparation of discharge with greater than 50% of that time dedicated to patient counseling and coordination of care. . Attending Statement The patient was seen and examined together with Dr. Cameron on 09/29/2016 and I agree with the history, exam and plan as outlined in the note above. . copies to: Sunil Ignacio MD, Bob A DO September 30, 2016 16:55 Narendra Lopez MD September 30, 2016 17:03
== END 2016-09-29 13:36 | disposition home or self-care (01) | DRG 299 ==
LOC: PCC 17:43 → CCU 09-27 10:15
PROVIDERS: ADMIT Internal Medicine; ATTEND Internal Medicine
PROC: 3E03317 Introduction of Other Thrombolytic into Peripheral Vein, Percutaneous Approach (ICD-10-PCS; principal; 2016-09-27)
PROC: 3E03317 Introduction of Other Thrombolytic into Peripheral Vein, Percutaneous Approach (ICD-10-PCS; 2016-09-28)
PROC: B51C1ZZ Fluoroscopy of Left Lower Extremity Veins using Low Osmolar Contrast (ICD-10-PCS; 2016-09-28)
DX: I82.412 Acute embolism and thrombosis of left femoral vein (principal); I26.99 Other pulmonary embolism without acute cor pulmonale; I82.812 Embolism and thrombosis of superficial veins of left lower extremity; I82.890 Acute embolism and thrombosis of other specified veins; I82.422 Acute embolism and thrombosis of left iliac vein; I48.0 Paroxysmal atrial fibrillation; I10 Essential (primary) hypertension; I25.10 Atherosclerotic heart disease of native coronary artery without angina pectoris; Z85.46 Personal history of malignant neoplasm of prostate; F17.200 Nicotine dependence, unspecified, uncomplicated; E78.5 Hyperlipidemia, unspecified; R73.9 Hyperglycemia, unspecified; Z95.5 Presence of coronary angioplasty implant and graft; Z95.828 Presence of other vascular implants and grafts; Z95.0 Presence of cardiac pacemaker; Z86.711 Personal history of pulmonary embolism; Z79.82 Long term (current) use of aspirin

== ENCOUNTER 2017-02-26 09:23 | Emergency (ER) | payer MEDICARE ==
[~2017-02-26] VITALS: Ht 175.3 cm; Wt 84.1 kg
[~2017-02-26 09:23] MED LIST changes: -CYCL1DRO OP; +LOV100 SUBQ; -SIMV20TA4 PO; +WARF5TAB7 PO
[2017-02-26 09:25] VITALS: BP 133/84; PULSE 54; RESP 16; O2SAT 97
--- NOTE | 2017-02-26 09:34 | ED.REPORT ---
HPI-Extremity Problem Lower Date of Service Feb 26, 2017 ED Provider: Suri Parham MD The pt is a 76 y/o male w/ a hx of prostate cancer, DVT, and a PE presenting to the ED c/o L calf pain. The pain is described as feeling like it has decreased in circulation, began while he was sleeping, and was severe enough to cause him to be unable to return to sleep. Denies SOB, CP, abdominal pain, lower extremity edema, or increased HR. Five months ago the pt was admitted to the hospital w/ DVT and a PE. He was discharged home on Coumadin. He has had a Gail filter for the last 10 years. Nursing Notes Stated Complaint: LT LEG PAIN Chief Complaint: L calf pain Nursing Notes Reviewed: Yes Allergies: Coded Allergies: No Known Allergies (Verified , 02/23/14) Scheduled Aspirin (Aspir 81) 81 Mg Tablet.dr 81 MG PO DAILY Enoxaparin (Lovenox) 100 Mg/Ml Syringe 90 MG SUBQ Q12 Sotalol HCl (Sotalol) 80 Mg Tablet 80 MG PO HS Sotalol HCl (Sotalol) 80 Mg Tablet 40 MG PO AM Warfarin Sodium (Warfarin Sodium) 5 Mg Tablet 5 MG PO DAILY General Time Seen by MD: 09:33 Chief Complaint Other (L calf pain ) Hx Obtained From: Patient Arrived By: Walk-in Onset Occurred: Just prior to arrival Symptom Duration: Since onset Recent Healthcare: Recent doctor visit, Recent hospitalization Similar Sx Previous: Yes Past Medical History Past Medical History Prostate cancer PE DVT Past Surgical History R knee replacement Stent placement Pacemaker placement Appendectomy R ankle surgery R collarbone surgery Smoking History Unknown if Ever Smoker Social History Other Social History: Good social support Ambulatory Status Independent Review of Systems Denies increased HR; Musculoskeletal: Reports: Extremity pain (L calf ) Complete sys rev & neg: except as marked. Respiratory: Denies: Shortness of breath Cardiovascular: Denies: Chest pain, Edema GI: Denies: Abdominal pain Physical Exam Initial Vital Signs Vital Signs (First) Date Time Temp Pulse Resp B/P Pulse Ox O2 Delivery O2 Flow Rate FiO2 02/26/17 09:25 35.8 54 16 133/84 97 Room Air Initial VS: Reviewed General/Constitutional: Well-developed, Well-nourished Head / Eyes: Atraumatic, Normocephalic, PERRL ENT: Mucous membranes moist, Conjunctiva normal, No scleral icterus Neck: Supple, Non-tender, Full range of motion Respiratory: Breath sounds normal, Clear to auscultation, No respiratory distress Cardiovascular: Regular rate & rhythm, Heart sounds normal, Intact distal pulses Upper Extremities: Vascular intact, Neuro intact, No swelling, No tenderness Skin: Warm, Dry, No cyanosis Neurologic: Alert, Oriented, Nonfocal Psychiatric: Mood/affect normal, Behavior normal, Normal thought content Lower Extremity / Pelvis / MS: Neurologic intact Mild abrasion on L anterior melo; No calf or thigh tenderness; No LLE swelling; Ankle / Foot: Atraumatic, Inspection NL, Full range of motion Interpretation & Diagnostics Lab Results Interpretation Test 02/26/17 10:00 Prothrombin Time 20.6sec (8.1-12.5) Prothromb Time International Ratio 1.90ratio Hold Hines Top Tube Received (Received) US Soft Tissue/Musculoskeletal Left leg US Impression: No signs of DVT; Exam Performed by: [facility] Exam Type: Diagnostic Re-Eval/Medical Decision Counseled Regarding: Diagnosis, Lab results, Need for follow-up, When/why to return to ED Discharge & Departure Impression: Primary Impression: Pain of left lower extremity Ruled Out: DVT (deep vein thrombosis) in Disposition: Home Discharge Condition All VS Reviewed: Yes Condition: Stable Additional Instructions: Thank for you entrusting us with your care today. Your ultrasound shows no sign of DVT. Your INR today is 1.[address] Dexter's nurse to let her know the level and ask her about any adjustments and your next check Please return to the emergency department if you experience any new or worsening symptoms. I hope you feel better soon. Referrals: Sunil Ignacio MD (PCP) Scribe Attestation Portions of this note were transcribed by Ajit Mahmood. I, Dr. Parham personally performed the history, physical exam and medical decision-making; I reviewed and confirmed the accuracy of the information in the transcribed note. copies to: Sunil Ignacio MD, Shawna L MD Feb 26, 2017 09:33 Ajit Mahmood Feb 26, 2017 10:22
[2017-02-26 10:30] LABS: INR 1.9 ratio
[2017-02-26 11:52] VITALS: BP 163/99; PULSE 55; RESP 16; O2SAT 98
--- NOTE | 2017-02-26 12:02 | DRSVH ---
PROCEDURE: US VEINOUS LEG DUPLEX UNILATERAL, LEFT INDICATIONS: left leg pain, history of DVT, on coumadin TECHNIQUE: Real-time imaging, as well as color and pulse Doppler interrogation, were performed of the lower extr emity deep veins from the inguinal ligament to the popliteal fossa. COMPARISON: None. FINDINGS: The deep veins are normally compressible, and free of intraluminal thrombus. Color and pu lse Doppler demonstrate normal phasic intraluminal flow. There is normal augmentation response to di stal compression maneuver. IMPRESSION: No DVT found left leg. Dictated by: Donte Trotter M.D. on 02/26/2017 at 12:00 Approved by: Donte Trotter M.D. on 02/26/2017 at 12:00
== END 2017-02-26 11:53 | disposition home or self-care (01) ==
LOC: SED 09:23
DX: M79.662 Pain in left lower leg (principal); Z85.46 Personal history of malignant neoplasm of prostate; Z72.820 Sleep deprivation; Z95.0 Presence of cardiac pacemaker; Z90.89 Acquired absence of other organs; Z96.651 Presence of right artificial knee joint; Z98.890 Other specified postprocedural states; Z79.82 Long term (current) use of aspirin; Z79.01 Long term (current) use of anticoagulants